=== PATIENT | male | born 2000 | race Asian ===

== ENCOUNTER 2019-12-16 23:18 | Emergency (ER) | payer OTHER ==
--- NOTE | 2019-12-16 23:29 | ED ---
Lower Extremity - HPI Summary HPI Summary: Patient states he was hit by a fellow player while playing basketball this evening with subsequent patellar dislocation of left knee. Per patient EMS straighten his knee and patella popped back into place. Patient denies prior history of same. States 12/25 at this time. Denies any other pain, symptoms or injuries. - History of Current Complaint Chief Complaint: EDExtremityLower Stated Complaint: DISLOCATED KNEE PER EMS Time Seen by Provider: 12/16/19 23:21 Hx Obtained From: Patient Mechanism Of Injury: Blunt Trauma Onset of Pain: Immediate Onset/Duration: Minutes Severity Initially: Moderate Severity Currently: Mild Pain Intensity: 3 Pain Scale Used: 0-10 Numeric Timing: Constant Location: Is Discrete @ Character Of Pain: Dull, Aching Associated Signs And Symptoms: Positive: Negative Aggravating Factor(s): Standing, Ambulation Alleviating Factor(s): Rest, Ice Able to Bear Weight: Yes PMH/Surg Hx/FS Hx/Imm Hx Endocrine/Hematology History: Denies: Hx Anticoagulant Therapy Cardiovascular History: Denies: Hx Pacemaker/ICD History: Denies: Hx Dialysis Sensory History: Denies: Hx Eye Prosthesis Opthamlomology History: Denies: Hx Legally Blind EENT History: Denies: Hx Deafness Neurological History: Denies: Hx Dementia Infectious Disease History: No Infectious Disease History: Denies: Traveled Outside the [place] in Last 30 Days - Family History Known Family History: Positive: Non-Contributory - Social History Alcohol Use: Occasionally Hx Substance Use: No Hx Tobacco Use: No Review of Systems Constitutional: Negative Eyes: Negative ENT: Negative Cardiovascular: Negative Respiratory: Negative Gastrointestinal: Negative Genitourinary: Negative Musculoskeletal: Other Skin: Negative Neurological: Negative Psychological: Normal All Other Systems Reviewed And Are Negative: Yes Physical Exam - Summary Physical Exam Summary: No erythema, ecchymosis, deformity, swelling noted to left knee. Full range of motion with some pain. PMS intact distally. Triage Information Reviewed: Yes Vital Signs On Initial Exam: Initial Vitals Temp Pulse Resp BP Pulse Ox 98.3 F 75 16 132/82 97 12/16/19 23:20 12/16/19 23:20 12/16/19 23:20 12/16/19 23:20 12/16/19 23:20 Vital Signs Reviewed: Yes Appearance: Positive: Well-Appearing Skin: Positive: Warm Head/Face: Positive: Normal Head/Face Inspection Eyes: Positive: Normal Neck: Positive: Supple Respiratory/Lung Sounds: Positive: Clear to Auscultation Cardiovascular: Positive: Normal Abdomen Description: Positive: Nontender Musculoskeletal: Positive: Normal Neurological: Positive: Normal Psychiatric: Positive: Normal AVPU Assessment: Alert - Lester Coma Scale Best Eye Response: 4 - Spontaneous Best Motor Response: 6 - Obeys Commands Best Verbal Response: 5 - Oriented Coma Scale Total: 15 Procedures - Sedation Patient Received Moderate/Deep Sedation with Procedure: No Diagnostics - Vital Signs Vital Signs Temp Pulse Resp BP Pulse Ox 12/16/19 23:20 98.3 F 75 16 132/82 97 - Laboratory Lab Statement: Any lab studies that have been ordered have been reviewed, and results considered in the medical decision making process. Lower Extremity Course/Dx - Course Course Of Treatment: Patient states he was hit by a fellow player while playing basketball this evening with subsequent patellar dislocation of left knee. Per patient EMS straighten his knee and patella popped back into place. Patient denies prior history of same. States 12/25 at this time. Denies any other pain , symptoms or injuries. Vital signs within normal limits. X-ray left knee negative for fracture or dislocation. Knee immobilizer and crutches, follow-up with orthopedics. - Diagnoses Provider Diagnoses: Dislocation, patella closed Discharge ED - Sign-Out/Discharge Documenting (check all that apply): Patient Departure - Discharge Plan Condition: Stable Disposition: HOME Patient Education Materials: Patellar Dislocation (ED), Knee Immobilizer (ED) Referrals: Deric Padilla MD [Medical Doctor] - Additional Instructions: Wear knee immobilizer until you can follow-up with orthopedics in one to 2 weeks. Weightbearing as tolerated. Alternate ibuprofen 600 mg with Tylenol 650 mg every 3 hours for pain and swelling. Ice 15 minutes at a time several times a day. Follow-up with orthopedics Dr. Padilla for further evaluation. - Billing Disposition and Condition Condition: STABLE Disposition: Home
== END 2019-12-17 00:10 | disposition home or self-care (01) ==
LOC: ED 23:18
DX: S83.005A Unspecified dislocation of left patella, initial encounter (principal); W50.0XXA Accidental hit or strike by another person, initial encounter; Y93.67 Activity, basketball; Y99.9 Unspecified external cause status
CPT/HCPCS: 99282